=== PATIENT | male | born 1945 | race Caucasian/White ===

== ENCOUNTER → 2019-05-21 | Outpatient (CLI) | payer MEDICARE | END | disposition home or self-care (01) | LOC: CFH 10:03 | PROVIDERS: ATTEND Surgery | DX: K57.90 Diverticulosis of intestine, part unspecified, without perforation or abscess without bleeding (principal); K42.9 Umbilical hernia without obstruction or gangrene; I72.3 Aneurysm of iliac artery; I71.2 Thoracic aortic aneurysm, without rupture; M51.37 Other intervertebral disc degeneration, lumbosacral region; I71.4 Abdominal aortic aneurysm, without rupture | CPT/HCPCS: 74176 ==